=== PATIENT | female | born 1985 | race Caucasian/White ===

== ENCOUNTER 2021-04-27 13:59 | Emergency (ER) | payer BC, OTHER ==
[~2021-04-27] VITALS: Ht 162.6 cm; Wt 59.0 kg
[2021-04-27] MEDS ORDERED: PANTOPRAZOLE 40 MG 10ML VIAL IV STA (14:17)
[2021-04-27] MEDS ORDERED: METOCLOPRAMIDE HCL 10 MG/2ML VIAL IV ONE (14:30)
[2021-04-27 14:40] LABS: BASOPHILS # (AUTO) 0.1 (0.0-0.1); BASOPHILS % 0.7 % (0.0-1.0); EOSINOPHILS # (AUTO) 0.3 (0.0-0.4); EOSINOPHILS % 2.8 % (0.0-6.0); HEMATOCRIT 36.2 % (34.2-44.1); HEMOGLOBIN 11.8 g/dL (12.0-16.0); LYMPHOCYTES # (AUTO) 2.2 (1.0-3.2); LYMPHOCYTES % 24.9 % (18.0-39.1); MEAN CORPUSCULAR HGB CONC 32.6 g/dL (31-35); MONOCYTES # (AUTO) 0.6 (0.2-0.8); MONOCYTES % 6.2 % (4.4-11.3); NEUTROPHILS # (AUTO) 5.7 (2.1-6.9); NEUTROPHILS % 65.1 % (38.7-80.0); PLATELET COUNT 352 x10e3/uL (140-360); RED BLOOD COUNT 3.81 x10e6/uL (3.6-5.1); RED CELL DISTRIBUTION WIDTH 11.5 % (11.7-14.4)
[2021-04-27 14:52] LABS: ALBUMIN 3.7 g/dL (3.5-5.0); ALBUMIN/GLOBULIN RATIO 1.2 (0.8-2.0); ANION GAP 16.4 mmol/L (8-16); CREATININE, SERUM 1.25 mg/dL (0.57-1.11); POTASSIUM 3.4 mmol/L (3.5-5.1)
[2021-04-27 14:59] LABS: CLARITY,URINE CLEAR (CLEAR); COLOR,URINE YELLOW (YELLOW); KETONES,URINE NEGATIVE (NEGATIVE); LEUKOCYTE ESTERASE ,URINE NEGATIVE (NEGATIVE); NITRITE,URINE NEGATIVE (NEGATIVE); PROTEIN,URINE DIPSTICK NEGATIVE (NEGATIVE); URINE UROBILINOGEN 0.2 mg/dL (0.2 - 1)
[2021-04-27 15:11] LABS: BACTERIA,URINE FEW /HPF; EPITHELIAL CELLS,URINE MANY /LPF; TRANSITIONAL EPI CELLS,URINE FEW
[2021-04-27 15:36] VITALS: BP 131/83
== END 2021-04-27 15:38 | disposition home or self-care (01) ==
LOC: ER 14:43
DX: E11.649 Type 2 diabetes mellitus with hypoglycemia without coma (principal); R10.13 Epigastric pain
CPT/HCPCS: 36415; 80053; 81001; 82948; 84484; 85025; 93005; 99282; C9113; J2765

== ENCOUNTER 2021-05-04 11:53 | Inpatient (IN) | payer BC, OTHER ==
[~2021-05-04] VITALS: Ht 162.6 cm; Wt 61.2 kg
[2021-05-04] MEDS ORDERED: SODIUM CHLORIDE 0.9% 1000ML 1,000 ML IV STA (12:02)
[2021-05-04] MEDS ORDERED: MORPHINE SULFATE INJ 4 MG/ML INJ 1ML IV STA ×2 (12:10→13:36)
[2021-05-04] MEDS ORDERED: PROMETHAZINE 25MG/ NS 50ML (IV) IV STA ×2 (12:10→13:36)
[2021-05-04 12:38] LABS: BASOPHILS # (AUTO) 0.1 (0.0-0.1); BASOPHILS % 0.3 % (0.0-1.0); EOSINOPHILS # (AUTO) 0.1 (0.0-0.4); EOSINOPHILS % 0.9 % (0.0-6.0); HEMATOCRIT 46.4 % (34.2-44.1); HEMOGLOBIN 15.3 g/dL (12.0-16.0); LYMPHOCYTES # (AUTO) 1.8 (1.0-3.2); LYMPHOCYTES % 11.7 % (18.0-39.1); MEAN CORPUSCULAR HEMOGLOBIN 30.8 pg (28-32); MEAN CORPUSCULAR VOLUME 93.4 fL (81-99); MONOCYTES # (AUTO) 0.3 (0.2-0.8); MONOCYTES % 2.1 % (4.4-11.3); NEUTROPHILS # (AUTO) 12.6 (2.1-6.9); NEUTROPHILS % 84.5 % (38.7-80.0); PLATELET COUNT 464 x10e3/uL (140-360); RED BLOOD COUNT 4.97 x10e6/uL (3.6-5.1); RED CELL DISTRIBUTION WIDTH 11.9 % (11.7-14.4)
[2021-05-04 12:47] LABS: CLARITY,URINE CLEAR (CLEAR); COLOR,URINE YELLOW (YELLOW); LEUKOCYTE ESTERASE ,URINE NEGATIVE (NEGATIVE)
[2021-05-04 12:48] LABS: KETONES,URINE NEGATIVE (NEGATIVE); NITRITE,URINE NEGATIVE (NEGATIVE); PROTEIN,URINE DIPSTICK NEGATIVE (NEGATIVE); URINE UROBILINOGEN 0.2 mg/dL (0.2 - 1)
[2021-05-04 13:07] LABS: ALBUMIN 4.5 g/dL (3.5-5.0); CALCIUM 10.4 mg/dL (8.4-10.2); CREATININE, SERUM 1.52 mg/dL (0.57-1.11)
[2021-05-04 13:11] LABS: CREATINE KINASE 114 IU/L (29-168)
[2021-05-04 13:19] LABS: AMPHETAMINES SCREEN,URINE NEGATIVE (NEGATIVE); BACTERIA,URINE FEW /HPF; BENZODIAZEPINES SCREEN,URINE NEGATIVE (NEGATIVE); EPITHELIAL CELLS,URINE MODERATE /LPF; PHENCYCLIDINE SCREEN,URINE NEGATIVE (NEGATIVE); RBC,URINE 0-5 /HPF (0-5); TRANSITIONAL EPI CELLS,URINE FEW
[2021-05-04] MEDS ORDERED: PROTONIX20 MG PO (13:46)
[2021-05-04] MEDS ORDERED: PROMETHAZINE HC25 M1 PO ×2 (13:46→17:33)
[2021-05-04] MEDS ORDERED: MORPHINE SULFATE INJ 4 MG/ML INJ 1ML ONE (14:05)
[2021-05-04] MEDS ORDERED: PROMETHAZINE 25MG/SOD CHL 0.9% 50 ML IV ONE (14:05)
[2021-05-04] MEDS ORDERED: PROMETHAZINE 25MG/ NS 50ML (IV) IV PRN (14:15)
[2021-05-04] MEDS ORDERED: MORPHINE SULFATE INJ 2 MG/ML SYR IV PRN (14:15)
[2021-05-04] MEDS ORDERED: MORPHINE SULFATE INJ 4 MG/ML INJ 1ML IV PRN (14:30)
[2021-05-04] MEDS ORDERED: DEXTROSE 50% SYRINGE 50 ML IV STA (14:43)
[2021-05-04] MEDS ORDERED: DEXTROSE 50% SYRINGE 50 ML IV ONE (14:46)
[2021-05-04 16:54] VITALS: BP 120/88
[2021-05-04] MEDS ORDERED: SYNTHROID125 MCG PO (17:27)
[2021-05-04] MEDS ORDERED: HUMALOG100 UNIT/1 SQ (17:33)
[2021-05-04] MEDS ORDERED: FLUOXETINE HCL20 M1 PO (17:33)
[2021-05-04] MEDS ORDERED: GABAPENTIN300 MG PO (17:33)
[2021-05-04] MEDS ORDERED: WELLBUTRIN XL150 MG PO (17:33)
[2021-05-04] MEDS ORDERED: LEVEMIR FL100 UNIT/1 SC (17:33)
[2021-05-04 17:42] VITALS: BP 120/88
[2021-05-04 19:55] VITALS: BP 124/84
[2021-05-04 20:00] VITALS: BP 124/84
[2021-05-04] MEDS: INSULIN LISPRO 100 UNIT/1 ML 3ML VIAL SQ SCH (20:17)
[2021-05-04] MEDS ORDERED: METOCLOPRAMIDE HCL 10 MG/2ML VIAL IV PRN (20:30)
[2021-05-04 20:39] LABS: CREATINE KINASE 94 IU/L (29-168)
[2021-05-04] MEDS ORDERED: INSULIN GLARGINE 100 UNITS/ML VIAL SC SCH (21:00)
[2021-05-04] MEDS: MORPHINE SULFATE INJ 4 MG/ML INJ 1ML IV PRN (22:08)
[2021-05-05] VITALS (8 sets, daily range): BP systolic 95–111; BP diastolic 67–76
[2021-05-05] MEDS: MORPHINE SULFATE INJ 4 MG/ML INJ 1ML IV PRN ×6 (01:15→21:03)
[2021-05-05 04:56] LABS: BASOPHILS # (AUTO) 0.1 (0.0-0.1); BASOPHILS % 0.5 % (0.0-1.0); EOSINOPHILS # (AUTO) 0.3 (0.0-0.4); EOSINOPHILS % 2.8 % (0.0-6.0); HEMATOCRIT 39.2 % (34.2-44.1); LYMPHOCYTES # (AUTO) 3.5 (1.0-3.2); MEAN CORPUSCULAR HEMOGLOBIN 31.3 pg (28-32); MEAN CORPUSCULAR HGB CONC 33.2 g/dL (31-35); MEAN CORPUSCULAR VOLUME 94.2 fL (81-99); MONOCYTES # (AUTO) 0.6 (0.2-0.8); MONOCYTES % 5.1 % (4.4-11.3); NEUTROPHILS # (AUTO) 6.5 (2.1-6.9); NEUTROPHILS % 59.3 % (38.7-80.0); PLATELET COUNT 354 x10e3/uL (140-360); RED BLOOD COUNT 4.16 x10e6/uL (3.6-5.1); RED CELL DISTRIBUTION WIDTH 11.9 % (11.7-14.4)
[2021-05-05 05:23] LABS: ALBUMIN 3.6 g/dL (3.5-5.0); ALBUMIN/GLOBULIN RATIO 1.2 (0.8-2.0); ANION GAP 15.2 mmol/L (8-16); CREATININE, SERUM 1.23 mg/dL (0.57-1.11); POTASSIUM 4.2 mmol/L (3.5-5.1)
[2021-05-05 05:24] LABS: CALCIUM 8.5 mg/dL (8.4-10.2)
[2021-05-05] MEDS: METOCLOPRAMIDE HCL 10 MG/2ML VIAL IV SCH ×4 (05:24→23:41)
[2021-05-05 05:39] LABS: CREATINE KINASE 70 IU/L (29-168)
[2021-05-05] MEDS ORDERED: INSULIN REGULAR, HUMAN 100 UNIT/1 ML 3ML VIAL SQ ONE (06:00)
[2021-05-05] MEDS: INSULIN LISPRO 100 UNIT/1 ML 3ML VIAL SQ SCH ×4 (08:00→21:00)
[2021-05-05] MEDS: SUCRALFATE 1 GM TAB PO SCH ×4 (08:10→21:02)
[2021-05-05] MEDS: DEXTROSE 50% SYRINGE 50 ML IV PRN ×2 (10:11→11:50)
[2021-05-05] MEDS: INSULIN GLARGINE 100 UNITS/ML VIAL SC SCH (21:05)
[2021-05-06] VITALS (7 sets, daily range): BP systolic 92–118; BP diastolic 69–83
[2021-05-06] MEDS: MORPHINE SULFATE INJ 4 MG/ML INJ 1ML IV PRN ×6 (00:03→20:03)
[2021-05-06] MEDS: PROMETHAZINE 12.5MG/ NACL 0.9% 12.5 MG/50 ML BAG IV PRN ×3 (04:01→21:03)
[2021-05-06] MEDS: METOCLOPRAMIDE HCL 10 MG/2ML VIAL IV SCH ×3 (06:07→17:29)
[2021-05-06] MEDS: LEVOTHYROXINE SODIUM 75 MCG TAB PO SCH (06:07)
[2021-05-06] MEDS: INSULIN LISPRO 100 UNIT/1 ML 3ML VIAL SQ SCH ×4 (07:30→22:00)
[2021-05-06] MEDS: SUCRALFATE 1 GM TAB PO SCH ×4 (08:44→21:00)
[2021-05-06] MEDS: BUPROPION HCL 150 MG TABCR PO SCH (09:39)
[2021-05-06] MEDS: FLUOXETINE HCL 20 MG CAP PO SCH (09:39)
[2021-05-06] MEDS: HYDROCODONE/APAP 10MG-325MG TAB PO PRN ×2 (16:09→22:18)
[2021-05-06] MEDS ORDERED: SODIUM CHLORIDE 0.9% 100 ML ONE (20:56)
[2021-05-06] MEDS: INSULIN GLARGINE 100 UNITS/ML VIAL SC SCH (22:00)
[2021-05-07] VITALS: BP 108/75
[2021-05-07] MEDS: MORPHINE SULFATE INJ 4 MG/ML INJ 1ML IV PRN ×3 (00:27→07:59)
[2021-05-07] MEDS: METOCLOPRAMIDE HCL 10 MG/2ML VIAL IV SCH ×2 (00:27→05:52)
[2021-05-07 04:00] VITALS: BP 113/79
[2021-05-07] MEDS: HYDROCODONE/APAP 10MG-325MG TAB PO PRN (05:45)
[2021-05-07] MEDS: LEVOTHYROXINE SODIUM 75 MCG TAB PO SCH (06:52)
[2021-05-07] MEDS: FLUOXETINE HCL 20 MG CAP PO SCH (07:53)
[2021-05-07] MEDS: SUCRALFATE 1 GM TAB PO SCH (07:53)
[2021-05-07] MEDS: BUPROPION HCL 150 MG TABCR PO SCH (07:54)
[2021-05-07] MEDS: INSULIN LISPRO 100 UNIT/1 ML 3ML VIAL SQ SCH (07:59)
[2021-05-07 08:17] VITALS: BP 108/74
[2021-05-07 08:22] VITALS: BP 108/74
[2021-05-07] MEDS ORDERED: HYDROCODON-ACE1 EAC9 PO (08:40)
[2021-05-07] MEDS ORDERED: METOCLOPRAM5 MG/5 ML PO (08:40)
[2021-05-07] MEDS ORDERED: SUCRALFATE1 GM PO (08:40)
[2021-05-07] MEDS ORDERED: PANTOPRAZOLE SO40 MG PO (08:46)
[2021-05-07] MEDS ORDERED: HYDROCODON-ACE1 EA11 PO (08:51)
== END 2021-05-07 10:45 | disposition home or self-care (01) | DRG 74 ==
LOC: ER 12:02 → ERHOLD 15:01 → IMCU 16:56 → OBSVTOIN 05-06 09:11 → MED/SURG 05-06 13:12
PROVIDERS: ADMIT Internal Medicine; ATTEND Internal Medicine
DX: E10.43 Type 1 diabetes mellitus with diabetic autonomic (poly)neuropathy (principal); K31.84 Gastroparesis; E03.9 Hypothyroidism, unspecified; F32.9 Major depressive disorder, single episode, unspecified; Z20.822 Contact with and (suspected) exposure to COVID-19; E10.65 Type 1 diabetes mellitus with hyperglycemia
CPT/HCPCS: 36415; 80053; 80307; 81001; 82550; 82553; 82948; 83690; 84484; 85025; 87086; 93005; 99284; G0378; J1815; J2270; J2550; J2765; J7030; J7050; J7799; U0002